=== PATIENT | female | born 1985 | race Two or more races ===

== ENCOUNTER → 2017-08-14 | Outpatient (REF) | payer OTHER | LOC: M SFHCLERA 15:28 | PROVIDERS: ATTEND Nurse Practitioner Family | DX: J02.9 Acute pharyngitis, unspecified (principal) ==

== ENCOUNTER → 2017-08-16 | Outpatient (REF) | payer OTHER | LOC: M SFHCLERA 12:59 | PROVIDERS: ATTEND Nurse Practitioner Family | DX: J02.9 Acute pharyngitis, unspecified (principal) ==

== ENCOUNTER → 2017-10-16 | Outpatient (CLI) | payer OTHER | LOC: M CLY 09:49 | DX: M54.5 Low back pain (principal) | CPT/HCPCS: 72110 ==

== ENCOUNTER → 2018-06-01 | Outpatient (CLI) | payer OTHER | LOC: M WUC 14:12 | DX: S93.401A Sprain of unspecified ligament of right ankle, initial encounter (principal); R30.0 Dysuria | CPT/HCPCS: 73610 ==

== ENCOUNTER → 2018-06-10 | Outpatient (REF) | payer OTHER | LOC: M SFHCCLAY 09:35 | DX: Z12.4 Encounter for screening for malignant neoplasm of cervix (principal) | CPT/HCPCS: G0123 ==

== ENCOUNTER 2020-03-27 17:57 | Emergency (ER) | payer OTHER ==
[~2020-03-27] VITALS: Ht 157.5 cm; Wt 96.0 kg
[2020-03-27] MEDS ORDERED: SUMA50TA2 (18:05)
[2020-03-27] MEDS ORDERED: ONDA4TAB6 (18:06)
[2020-03-27] MEDS ORDERED: VENL150C43 (18:06)
[2020-03-27] MEDS ORDERED: TETRACAINE 0.5% OPHTH SOLN 4ML OU ONE (18:30)
[2020-03-27] MEDS ORDERED: FLUORESCEIN OPHTH 1 MG STRIP OU ONE (18:30)
[2020-03-27] MEDS ORDERED: SULF10SO13 OP (18:42)
[2020-03-27] MEDS ORDERED: SULFACETAMIDE SOD 10% OPHTH SOLN 5ML OU SCH (18:45)
[2020-03-27 19:51] VITALS: BP 134/60
== END 2020-03-27 19:52 | disposition home or self-care (01) ==
LOC: M ED 17:57
DX: H10.32 Unspecified acute conjunctivitis, left eye (principal); F17.200 Nicotine dependence, unspecified, uncomplicated

== ENCOUNTER → 2021-07-24 | Outpatient (REF) | payer OTHER ==
[~2021-07-24] MED LIST: ONDA4TAB6; SULF10SO13 OP; SUMA50TA2; VENL150C43
[2021-07-24 11:48] LABS: BASO # 0.1 10^3/uL (0.0-0.2); BASO % 0.8 % (0.0-1.0); EOS # 0.3 10^3/uL (0.0-0.5); EOS % 2.5 % (0.0-3.0); HEMATOCRIT 39.7 % (36.0-47.0); LYMPH % 18.2 % (24.0-44.0); MEAN CORPUSCULAR HEMOGLOBIN 28.3 pg (27.0-33.0); MEAN CORPUSCULAR HGB CONC 32.7 g/dl (32.0-36.5); MEAN CORPUSCULAR VOLUME 86.5 fl (80.0-96.0); MONO # 0.7 10^3/uL (0.0-0.8); MONO % 6.1 % (2.0-8.0); PLATELET COUNT, AUTOMATED 421 10^3/uL (150-450); RED BLOOD COUNT 4.59 10^6/uL (4.00-5.40); WHITE BLOOD COUNT 11.1 10^3/uL (4.0-10.0)
[2021-07-24 12:27] LABS: ALBUMIN 3.9 GM/DL (3.2-5.2); BILIRUBIN,TOTAL 0.4 MG/DL (0.2-1.0); CALCIUM LEVEL 9.7 MG/DL (8.5-10.1); CHOLESTEROL RISK RATIO 5.177 (<5); CREATININE FOR GFR 1.13 MG/DL (0.55-1.30); FREE T4 1.05 NG/DL (0.76-1.46); GLOMERULAR FILTRATION RATE 57.4 (>60); POTASSIUM SERUM 3.8 MEQ/L (3.5-5.1); THYROID STIMULATING HORMONE 2.78 uIU/ML (0.358-3.740); TOTAL PROTEIN 7.2 GM/DL (6.4-8.2)
== END ==
LOC: M SFHCCLAY 09:09
PROVIDERS: ATTEND Nurse Practitioner Family
DX: E66.9 Obesity, unspecified (principal); Z68.38 Body mass index [BMI] 38.0-38.9, adult; F43.10 Post-traumatic stress disorder, unspecified; F41.1 Generalized anxiety disorder; F33.0 Major depressive disorder, recurrent, mild; Z13.220 Encounter for screening for lipoid disorders; F17.210 Nicotine dependence, cigarettes, uncomplicated
CPT/HCPCS: 80053; 80061; 84439; 84443; 85025; 90471; 90472; 90682; 90732; G0463

== ENCOUNTER → 2022-03-03 | Outpatient (CLI) | payer OTHER | LOC: M WUC 09:50 | PROVIDERS: ATTEND Physician Assistant | DX: R05.9 Cough, unspecified (principal); Z72.0 Tobacco use ==

== ENCOUNTER → 2022-05-19 | Outpatient (REF) | payer OTHER | LOC: M WUC 20:06 | PROVIDERS: ATTEND Physician Assistant | DX: R30.0 Dysuria (principal); M54.59 Other low back pain ==

== ENCOUNTER → 2022-12-01 | Outpatient (REF) | payer OTHER | LOC: M WUC 16:10 | PROVIDERS: ATTEND Physician Assistant | DX: J02.9 Acute pharyngitis, unspecified (principal); Z20.828 Contact with and (suspected) exposure to other viral communicable diseases ==

== ENCOUNTER → 2023-10-01 | Outpatient (CLI) | payer OTHER | LOC: M CLY 14:13 | PROVIDERS: ATTEND Nurse Practitioner Family | DX: M25.551 Pain in right hip (principal); M25.552 Pain in left hip | CPT/HCPCS: 73502; G0463 ==

== ENCOUNTER → 2023-10-20 | Outpatient (CLI) | payer OTHER | LOC: M WHC 12:47 | PROVIDERS: ATTEND Nurse Practitioner Family | DX: Z12.31 Encounter for screening mammogram for malignant neoplasm of breast (principal) ==

== ENCOUNTER → 2024-05-31 | Outpatient (REF) ==
[~2024-05-31] MED LIST changes: +ONDA-282; -ONDA4TAB6
== END ==
LOC: M PLAIMG 13:16
PROVIDERS: ATTEND Internal Medicine
DX: R51.9 Headache, unspecified (principal)

== ENCOUNTER → 2024-08-18 | Outpatient (REF) | payer OTHER ==
[2024-08-22 15:52] LABS: HPV APTIMA Not Detected (Not Detected)
== END ==
LOC: M SFHCCLAY 11:17
PROVIDERS: ATTEND Nurse Practitioner Family
DX: Z01.419 Encounter for gynecological examination (general) (routine) without abnormal findings (principal)

== ENCOUNTER → 2024-09-20 | Outpatient (CLI) | payer OTHER | LOC: M SOG 08:06 | PROVIDERS: ATTEND Physician Assistant | DX: Z53.9 Procedure and treatment not carried out, unspecified reason (principal) ==

== ENCOUNTER → 2024-10-03 | Outpatient (CLI) | payer OTHER | LOC: M SOG 12:59 | PROVIDERS: ATTEND Physician Assistant | DX: M25.512 Pain in left shoulder (principal) ==

== ENCOUNTER → 2024-10-27 | Outpatient (CLI) | payer OTHER | LOC: M WHC 09:17 | PROVIDERS: ATTEND Nurse Practitioner Family | DX: Z12.31 Encounter for screening mammogram for malignant neoplasm of breast (principal); R92.323 Mammographic fibroglandular density, bilateral breasts ==

== ENCOUNTER → 2024-12-16 | Outpatient (CLI) | payer OTHER, MEDICARE ==
[~2024-12-16] MED LIST changes: +AMPH1CAP15 PO; +AMPH1TAB2 PO; +LAMO25TA4 PO; +LEXA1TAB2 PO
[2024-12-16 12:54] LABS: BASO # 0.1 10^3/uL (0.0-0.2); BASO % 0.6 % (0.0-1.0); EOS # 0.1 10^3/uL (0.0-0.5); HEMATOCRIT 40.1 % (36.0-47.0); HEMOGLOBIN 13.2 g/dl (12.0-15.5); LYMPH # 2.2 10^3/uL (1.5-5.0); LYMPH % 20.2 % (24.0-44.0); MEAN CORPUSCULAR HGB CONC 32.9 g/dl (32.0-36.5); MEAN CORPUSCULAR VOLUME 94.1 fl (80.0-96.0); MONO # 0.5 10^3/uL (0.0-0.8); MONO % 5.1 % (2.0-8.0); NEUTROPHILS # 7.8 10^3/uL (1.5-8.5); NEUTROPHILS % 72.9 % (36.0-66.0); PLATELET COUNT, AUTOMATED 379 10^3/uL (150-450); RED BLOOD COUNT 4.26 10^6/uL (4.00-5.40); WHITE BLOOD COUNT 10.7 10^3/uL (4.0-10.0)
[2024-12-16 13:20] LABS: BLOOD UREA NITROGEN 10 MG/DL (9-23); CALCIUM LEVEL 9.5 MG/DL (8.5-10.1); CARBON DIOXIDE LEVEL 29 MMOL/L (20-31); CHLORIDE LEVEL 105 MMOL/L (98-107); CREATININE FOR GFR 0.85 MG/DL (0.55-1.30); GLOMERULAR FILTRATION RATE > 60.0 (>58); GLUCOSE, FASTING 94 MG/DL (60-100); SODIUM LEVEL 145 MMOL/L (136-145)
== END ==
LOC: M EKG 11:44
PROVIDERS: ATTEND Podiatrist
DX: Z01.818 Encounter for other preprocedural examination (principal); M72.2 Plantar fascial fibromatosis; M79.672 Pain in left foot; I45.10 Unspecified right bundle-branch block

== ENCOUNTER → 2025-01-23 | Outpatient (CLI) | payer OTHER | LOC: M PLAIMG 08:16 | PROVIDERS: ATTEND Physician Assistant | DX: M25.512 Pain in left shoulder (principal) ==

== ENCOUNTER → 2025-06-05 | Outpatient (CLI) | payer OTHER ==
[~2025-06-05] MED LIST changes: +LAMO-18 PO; -LAMO25TA4 PO
[2025-06-05 12:58] LABS: BASO # 0.1 10^3/uL (0.0-0.2); BASO % 0.7 % (0.0-1.0); EOS # 0.1 10^3/uL (0.0-0.5); EOS % 0.8 % (0.0-3.0); LYMPH # 2.2 10^3/uL (1.5-5.0); LYMPH % 22.1 % (24.0-44.0); MONO # 0.7 10^3/uL (0.0-0.8); MONO % 6.9 % (2.0-8.0); NEUTROPHILS # 6.9 10^3/uL (1.5-8.5); NEUTROPHILS % 69.1 % (36.0-66.0); PLATELET COUNT, AUTOMATED 438 10^3/uL (150-450)
[2025-06-05 13:04] LABS: CALCIUM LEVEL 10.1 MG/DL (8.5-10.1); CARBON DIOXIDE LEVEL 25.0 MMOL/L (20-31); CHLORIDE LEVEL 105.0 MMOL/L (98-107); CREATININE FOR GFR 0.88 MG/DL (0.55-1.30); GLOMERULAR FILTRATION RATE 84.1 (>58); POTASSIUM SERUM 4.2 MMOL/L (3.5-5.1); SODIUM LEVEL 141.0 MMOL/L (136-145)
== END ==
LOC: M WUC 10:08
PROVIDERS: ATTEND Podiatrist
DX: M72.2 Plantar fascial fibromatosis (principal)

== ENCOUNTER 2025-06-09 08:33 | Day surgery (SDC) | payer OTHER ==
[~2025-06-09] VITALS: Ht 157.5 cm; Wt 68.3 kg
[2025-06-09] MEDS ORDERED: ROCURONIUM BROMIDE 50MG/5ML VIAL As Ordered ONE (08:59)
[2025-06-09] MEDS ORDERED: AMPH1TAB2 PO (09:16)
[2025-06-09] MEDS ORDERED: ARIP1TAB4 PO (09:16)
[2025-06-09] MEDS ORDERED: AMPH12.5 PO (09:16)
[2025-06-09] MEDS: LR 1,000 ML IV SCH (09:30)
[2025-06-09] MEDS ORDERED: MIDAZOLAM INJ 2 MG/2 ML VIAL As Ordered ONE (10:28)
[2025-06-09] MEDS ORDERED: ONDANSETRON 4MG 2ML VIAL As Ordered ONE (10:28)
[2025-06-09] MEDS ORDERED: LIDOCAINE 2% 100 MG/5 ML SDV (FOR ANES.) As Ordered ONE (10:28)
[2025-06-09] MEDS: LIDOCAINE 2% MDV 20 ML VIAL As Ordered ONE (12:07)
[2025-06-09] MEDS: dexAMETHasone 4 MG/ML 1 ML VIAL As Ordered ONE (12:07)
[2025-06-09] MEDS: GENTAMICIN SULF 80 MG/2 ML VIAL As Ordered ONE (12:07)
[2025-06-09] MEDS ORDERED: ACETAMINOPHEN 1000MG/100ML IV BAG As Ordered ONE (12:24)
[2025-06-09] MEDS ORDERED: ONDANSETRON 4MG 2ML VIAL IV PRN (13:25)
[2025-06-09 14:00] VITALS: BP 96/54; TEMP 97.3; O2SAT 100
== END 2025-06-09 14:30 | disposition home or self-care (01) ==
LOC: M SDC 08:33
PROVIDERS: ATTEND Podiatrist
DX: D21.22 Benign neoplasm of connective and other soft tissue of left lower limb, including hip (principal); F90.9 Attention-deficit hyperactivity disorder, unspecified type; F41.9 Anxiety disorder, unspecified; F32.A Depression, unspecified; Z79.899 Other long term (current) drug therapy; Z88.8 Allergy status to other drugs, medicaments and biological substances; F43.10 Post-traumatic stress disorder, unspecified; Z90.89 Acquired absence of other organs
CPT/HCPCS: 28060; 88305; J0131; J0665; J1100; J1580; J2250; J2405; J3010